=== PATIENT | female | born 1940 | race Caucasian/White ===

== ENCOUNTER 2023-10-20 22:58 | Observation (INO) | payer OTHER ==
[2023-10-20 23:17] VITALS: BMI 18.6
[2023-10-21 02:56] LABS: HEMATOCRIT 30.8 % (32.4-45.2); HEMOGLOBIN 10.2 GM/dL (10.7-15.3); LYMPH % 13.7 % (8-40); MCH 28.3 pg (25.7-33.7); MCHC 33.1 g/dl (32.0-36.0); MEAN CELL VOLUME 85.5 fl (80-96); MEAN PLT VOLUME 9.5 fl (7.5-11.1); MONO % 7.4 % (3.8-10.2); NEUT % 76.9 % (42.8-82.8); PLATELET COUNT 105 10^3/uL (134-434); RDW 15.5 % (11.6-15.6); WHITE BLOOD COUNT 12.3 K/mm3 (4.0-10.0)
[2023-10-21 03:13] LABS: CHLORIDE 110 mmol/L (98-107); SODIUM 144 mmol/L (136-145)
[2023-10-21 03:15] LABS: CALCIUM 7.7 mg/dL (8.5-10.1)
[2023-10-21 03:16] LABS: ALBUMIN 2.5 g/dl (3.4-5.0); BLOOD UREA NITROGEN 20.1 mg/dL (7-18); CO2 24 mmol/L (21-32); GLUCOSE,RANDOM 101 mg/dL (74-106)
[2023-10-21 03:19] LABS: CREATININE 1.2 mg/dL (0.55-1.3); SGOT/AST 14 U/L (15-37); SGPT/ALT 14 U/L (13-61)
[2023-10-21 03:20] LABS: TOT PROT 5.9 g/dl (6.4-8.2)
[2023-10-21 03:21] LABS: BILIRUBIN,TOTAL 0.3 mg/dL (0.2-1)
[2023-10-21 03:22] LABS: ALK PHOS 90 U/L (45-117)
[2023-10-21 03:29] LABS: ANION GAP 9 mmol/L (4-13); POTASSIUM 2.8 mmol/L (3.5-5.1)
[2023-10-21] MEDS ORDERED: POTASSIUM CHLORIDE ORAL LIQUID 20 MEQ/15 ML ONE (03:39)
[2023-10-21] MEDS ORDERED: KCL 10 MEQ IVPB 10 MEQ/100 ML INFUS.BAG IVPB SCH (03:45)
[2023-10-21] MEDS: POTASSIUM CHLORIDE ORAL LIQUID 20 MEQ/15 ML PO ONE ×2 (03:48)
[2023-10-21 04:39] LABS: EPI CELLS 2 /uL (0-25.1); HYALINE CASTS 0 /uL (0-3.1); URINE APPEARANCE CLOUDY; URINE BACTERIA >9,000 /uL (0-1359); URINE BILIRUBIN NEGATIVE (NEGATIVE); URINE COLOR YELLOW; URINE GLUCOSE (UA) NEGATIVE (NEGATIVE); URINE KETONE NEGATIVE (NEGATIVE); URINE LEUK ESTERASE 3+ (NEGATIVE); URINE NITRITE NEGATIVE (NEGATIVE); URINE PROTEIN TRACE (NEGATIVE); URINE RBC 737 /uL (0-23.9); URINE UROBILINOGEN 0.2 mg/dL (0.2-1.0); URINE WBC 3015 /uL (0-25.8)
[2023-10-21] MEDS ORDERED: TETANUS AND DIPHTHERIA TOXOID 0.5 ML DISP.SYRIN IM ONE (05:57)
[2023-10-21] MEDS ORDERED: CEFTRIAXONE 1 GM/50 ML BAG ONE (05:57)
[2023-10-21 06:22] LABS: BASO % 0.8 % (0-2.0); EOS % 1.1 % (0-4.5); HEMATOCRIT 31.1 % (32.4-45.2); HEMOGLOBIN 10.4 GM/dL (10.7-15.3); LYMPH % 12.7 % (8-40); MCH 28.6 pg (25.7-33.7); MCHC 33.6 g/dl (32.0-36.0); MEAN CELL VOLUME 85.2 fl (80-96); MEAN PLT VOLUME 9.5 fl (7.5-11.1); MONO % 8.8 % (3.8-10.2); NEUT % 76.6 % (42.8-82.8); PLATELET COUNT 169 10^3/uL (134-434); RBC 3.65 M/mm3 (3.60-5.2); RDW 15.1 % (11.6-15.6); WHITE BLOOD COUNT 9.8 K/mm3 (4.0-10.0)
[2023-10-21] MEDS: CEFTRIAXONE 1,000 MG in DEXTROSE 5%-WATER - 50 ML IVPB ONE (06:33)
[2023-10-21] MEDS: ACETAMINOPHEN 325 MG TABLET (FP) PO SCH (06:34)
[2023-10-21 06:41] LABS: POTASSIUM 4.6 mmol/L (3.5-5.1)
[2023-10-21 06:45] LABS: CALCIUM 8.2 mg/dL (8.5-10.1)
[2023-10-21 06:46] LABS: ALBUMIN 2.6 g/dl (3.4-5.0); BLOOD UREA NITROGEN 20.6 mg/dL (7-18); MAGNESIUM 1.6 mg/dL (1.8-2.4)
[2023-10-21 06:49] LABS: CREATININE 1.3 mg/dL (0.55-1.3); PHOSPHOROUS 1.5 mg/dL (2.5-4.9)
[2023-10-21 06:50] LABS: BILIRUBIN,TOTAL 0.4 mg/dL (0.2-1); TOT PROT 6.2 g/dl (6.4-8.2)
[2023-10-21] MEDS ORDERED: SUCRALFATE 1 GM TABLET (FP) ONE (09:05)
[2023-10-21] MEDS: SUCRALFATE 1 GM TABLET (FP) PO SCH (09:13)
[2023-10-21] MEDS: TETANUS, DIPHTHERIA TOX,ADULT 0.5 ML VIAL IM ONE (09:14)
[2023-10-21] MEDS: PANTOPRAZOLE 40 MG TABLET PO SCH (11:33)
[2023-10-21] MEDS: APIXABAN 2.5 MG TABLET PO SCH (11:37)
[2023-10-21] MEDS: MEMANTINE HCL 5 MG TABLET (UD) PO SCH (11:37)
[2023-10-21] MEDS: METOPROLOL TARTRATE 25 MG TABLET (FP) PO SCH (11:37)
[2023-10-21] MEDS: FERROUS SO4 325 MG TABLET (FP) PO SCH (11:38)
[2023-10-21] MEDS: amLODIPine BESYLATE 5 MG TABLET (FP) PO SCH (11:41)
[2023-10-21] MEDS: NAPH,MB-DB/K PH,MBDB POWDER PACKET PO SCH (18:16)
[2023-10-21] MEDS: MAGNESIUM SULFATE IN WATER 2 GM/50 ML IVPB IVPB ONE (18:19)
[2023-10-21 22:35] VITALS: RESP 18
[2023-10-22] MEDS: CEFTRIAXONE 1 GM in DEXTROSE 5%-WATER - 50 ML IVPB SCH (10:15)
[2023-10-22 12:05] VITALS: TEMP 97.7
[2023-10-22 14:25] VITALS: BP 155/47; PULSE 62
[2023-10-22] MEDS ORDERED: MAGNESIUM OXIDE 400 MG TABLET (FP) PO ONE (15:05)
== END 2023-10-22 15:40 | disposition home or self-care (01) ==
LOC: JER 22:58 → JERBED 10-21 02:18 → J4S 10-21 09:27
PROVIDERS: ADMIT Internal Medicine; ATTEND Internal Medicine
PROC: 0HQ0XZZ Repair Scalp Skin, External Approach (ICD-10-PCS; principal; 2023-10-21)
PROC: 3E03329 Introduction of Other Anti-infective into Peripheral Vein, Percutaneous Approach (ICD-10-PCS; 2023-10-21)
PROC: 3E033GC Introduction of Other Therapeutic Substance into Peripheral Vein, Percutaneous Approach (ICD-10-PCS; 2023-10-21)
DX: S01.91XA Laceration without foreign body of unspecified part of head, initial encounter (principal); W18.39XA Other fall on same level, initial encounter; I12.9 Hypertensive chronic kidney disease with stage 1 through stage 4 chronic kidney disease, or unspecified chronic kidney disease; F03.90 Unspecified dementia, unspecified severity, without behavioral disturbance, psychotic disturbance, mood disturbance, and anxiety; N18.30 Chronic kidney disease, stage 3 unspecified; Y93.89 Activity, other specified; Y92.099 Unspecified place in other non-institutional residence as the place of occurrence of the external cause; I48.91 Unspecified atrial fibrillation; Z79.01 Long term (current) use of anticoagulants; E87.6 Hypokalemia; D50.9 Iron deficiency anemia, unspecified; I50.30 Unspecified diastolic (congestive) heart failure
CPT/HCPCS: 12001-25; 36415; 70450-TC; 71045-TC-FY; 72125-TC; 72170-TC-FY; 80053; 81003; 83735; 84100; 84466; 84484; 85025; 87086; 87186; 93005; 93010; 93306-TC; 96365; 96366; 96367; 97116-GP; 97161-GP; 99285-25; G0378